=== PATIENT | male | born 1960 | race American Indian/Alaskan Native ===

== ENCOUNTER 2019-06-21 10:04 | Day surgery (SDC) | payer OTHER ==
[2019-06-21] MEDS ORDERED: SODIUM CHLORIDE 0.9% 1000 ML 1,000 ML IV SCH (10:30)
--- NOTE | 2019-06-21 10:38 | Anesthesia Day of Surgery ---
Anesthesia Day of Surgery - Day of Surgery Patient Examined: Yes Patient H&P Reviewed: Yes Patient is NPO: Yes Cardiac Clearance: Yes
--- NOTE | 2019-06-21 10:38 | Anesthesia Consultation ---
Anesthesia Consult and Med Hx Date of service: 06/21/19 - Airway Anesthetic Teeth Evaluation: Good ROM Head & Neck: Adequate Mental/Hyoid Distance: Adequate Mallampati Class: Class III Intubation Access Assessment: Possibly Difficult - Pulmonary Exam CTA: Yes - Cardiac Exam Cardiac Exam: RRR - Pre-Operative Health Status ASA Pre-Surgery Classification: ASA3 Proposed Anesthetic Plan: MAC - Pulmonary Hx Smoking: No Hx Asthma: Yes (last inhaler use 1 day ago) Hx Sleep Apnea: Yes (compliant for CPAP) - Cardiovascular System Hx Hypertension: Yes Hx Coronary Artery Disease: No (normal [facility] 07/2018) - Central Nervous System CVA: No Hx Psychiatric Problems: Yes (depression) - Gastrointestinal Hx Gastroesophageal Reflux Disease: No - Endocrine Hx Renal Disease: No Hx Liver Disease: No Hx Insulin Dependent Diabetes: No Hx Non-Insulin Dependent Diabetes: No Hx Thyroid Disease: No - Other Systems Hx Obesity: Yes (BMI 42) - Additional Comments Anesthesia Medical History Comments: Cardiology clearance on chart.
[2019-06-21] MEDS ORDERED: PROPOFOL 200 MG/20 ML VIAL IV ONE ×2 (11:55→11:56)
[2019-06-21] MEDS ORDERED: LIDOCAINE MPF (2%) 20 MG/1 ML VIAL 5 ML ONE (12:00)
--- NOTE | 2019-06-21 12:06 | Procedure Note ---
Date of procedure: 06/21/19 Pre-op diagnosis: Colon Polyp Screening/ F/H/O Colon Cancer Post-op diagnosis: other (No Colon Polyps or Diverticular Disease or Internal Hemorrhoids noted/ Normal Terminal Ileal Mucosa) Procedure: Colonoscopy Anesthesia: MAC Surgeon: YOVANI HESTER Estimated blood loss: none Pathology: none Condition: stable Disposition: same day (Resume home medication and follow up in 1 to 2 weeks ([phone]).)
--- NOTE | 2019-06-21 12:15 | Operative Report ---
PROCEDURE: Colonoscopy. INDICATIONS: A 58-year-old obese -[place] gentleman with a family history of cancer. The patient's father had colon cancer. Colonoscopy was done as part of colon polyp screening. His last colonoscopy was several years ago. DESCRIPTION OF PROCEDURE: Procedure was done after getting informed consent with MAC anesthesia. Initial rectal exam was unremarkable. Instrument was passed through the rectum onto the cecum, which was identified with ileocecal valve and the appendiceal orifice. Visualization was fair. The terminal ileum was intubated and showed normal terminal ileal mucosa. The cecum was also examined on the retroverted view. No additional pathology was noted. The scope was withdrawn to the hepatic flexure and reintroduced to the cecum without any additional pathology being noted. The cecum, ascending colon, transverse colon, descending colon, and sigmoid showed normal mucosa. There was no evidence of any polyps, colitis or diverticular disease, and the rectum appeared normal on the retroverted view. ASSESSMENT: Colon polyp screening, family history of colon cancer. No colon polyps or diverticular disease or internal hemorrhoids noted. Normal terminal ileal mucosa. There was no bleeding associated with the procedure. No complications associated with the procedure. PLAN: To have the patient resume home medication. Follow up in the office in 1-2 weeks' time. The procedure was done in the GI lab with assistance of the GI lab team, which included DEZ Patel, maggy Barajas, and with the assistance of anesthesia. JOB# [id number] PERRI/MARGAUX
[2019-06-21 15:38] VITALS: BP 118/86
--- NOTE | 2019-06-21 22:14 | Post Anesthesia Evaluation ---
- Post Anesthesia Evaluation Patient Participated: Yes Airway Patent: Yes Stable Respiratory Function: Yes Nausea/Vomiting: No Temp > 96.8F: Yes Pain Manageable: Yes Adequeate Hydration: Yes Anesthesia Complications: No Block Receding Appropriately: Not Applicable Patient on Ventilator: No
== END 2019-06-21 10:05 | disposition home or self-care (01) ==
LOC: GIO 10:04
DX: Z12.11 Encounter for screening for malignant neoplasm of colon (principal); I10 Essential (primary) hypertension; J45.909 Unspecified asthma, uncomplicated; G47.30 Sleep apnea, unspecified; E66.9 Obesity, unspecified; F32.9 Major depressive disorder, single episode, unspecified; Z80.0 Family history of malignant neoplasm of digestive organs; Z80.8 Family history of malignant neoplasm of other organs or systems; Z79.82 Long term (current) use of aspirin; Z79.899 Other long term (current) drug therapy; Z95.5 Presence of coronary angioplasty implant and graft; Z68.41 Body mass index [BMI] 40.0-44.9, adult
CPT/HCPCS: 45378; J2704; J7030